=== PATIENT | female | born 1965 | race Caucasian/White ===

== ENCOUNTER 2016-10-30 04:42 | Emergency (ER) | payer BC ==
[2016-10-30 04:54] VITALS: BP 139/81
[2016-10-30] MEDS ORDERED: METHYLPREDNISOLONE ACETATE 80 MG/ML VIAL IM ONE (05:21)
[2016-10-30] MEDS ORDERED: DEXAMETHASONE SOD PHOSPHATE 10 MG/ML VIAL IM ONE (05:21)
[2016-10-30] MEDS ORDERED: DEXAMETHASONE SOD PHOSPHATE 10 MG/ML VIAL ONE (05:33)
[2016-10-30] MEDS ORDERED: METHYLPREDNISOLONE ACETATE 80 MG/ML VIAL ONE (05:33)
--- NOTE | 2016-10-30 05:44 | ERNOTE ---
Head Injury HPI - General Injury to: other - Chronic neck pain Time Seen by Provider: 10/30/16 04:57 Source: patient, family Exam Limitations: clinical condition - Immun/Allergies/Home Medications Immunization: IMMUNIZATION HX Immunizations Up to Date Yes History of Influenza Vaccine No Hx Pneumococcal Vaccination No Allergies/Adverse Reactions: Allergies Allergy/AdvReac Type Severity Reaction Status Date / Time hydrocodone [Hydrocodone] Allergy Verified 08/30/14 15:49 latex Allergy Verified 08/30/14 15:49 Home Medications: HOME MEDICATIONS Tramadol HCl [Rybix Odt] 100 mg PO BID PRN 10/13/12 [Last Taken 10/13/12 07:00] Levothyroxine Sodium 10 mcg PO DAILY 05/14/14 [Last Taken Unknown] Muscle Relaxer 05/19/14 [Last Taken Unknown] Magnesium Citrate [Citrate of Magnesia] 150 ml PO BID #1 btl 07/28/16 [Last Taken Unknown] Nitroglycerin 0.4 mg SL Q5MIN PRN #1 bottle 07/28/16 [Last Taken Unknown] Sucralfate [Carafate] 1 g PO QID PRN #120 tablet 07/28/16 [Last Taken Unknown] Methylprednisolone [Medrol Dosepak] 4 mg PO DAILY #21 tab.ds.pk 10/30/16 [Last Taken Unknown] - History of Present Illness Narrative: Pt states she has had neck pain for some time but is not clear how long that has been. thinks it has been since last summer. Pain is associated with left arm pain. Pt states she has tried to get into her PCP but cannot until the end of the month. She does take tramadol daily for pain. She states she has had PT referral early on in this but stopped that. She was given a referral to a surgeon but had a scheduling problem and did not reschedule. She has not had oral steroids or ANNI. Occurred: other - worse the past 2-3 weeks Method of Injury: Reports: unknown Review of Systems - Review of Systems Constitutional: Absent: recent illness EYE: Present: no symptoms reported ENT: Present: no symptoms reported Respiratory: Present: no symptoms reported Cardiology: Present: no symptoms reported Gastrointestinal/Abdominal: Present: no symptoms reported Genitourinary: Present: other - incontinence and difficulty emptying her bladder at times Musculoskeletal: Present: See HPI, back pain - Low back pain also Skin: Present: no symptoms reported Neurological: Present: numbness - of her face that has been there "for a while" . , other - Pain on the top of both feet intermittantly. Endocrine: Present: no symptoms reported Hematologic/Lymphatic: Present: no symptoms reported Psych: Present: no symptoms reported - Patient's Past Medical History Patient History - Medical: Arthritis, Chronic Pain, Hypothyroidism, Other - degenerative disc disease, spinal stenosis Patient History - Cardiac/Respiratory: No pertinent hx Patient History - Cancer: No Hx of Cancer Patient History - Surgical Procedures: Cholecystectomy, Gastric Bypass, Total Knee Replacement, Other LMP (females 10-50): Menopausal - Family History Father Family History - Medical: Family History - Cardiac/Respiratory: Hypertension, Myocardial Infarction Brother Family History - Medical: Family History - Cardiac/Respiratory: Hypertension, Myocardial Infarction Sister Family History - Medical: Family History - Cardiac/Respiratory: Hypertension, Myocardial Infarction - Social History Living Situations: spouse Smoking Status: Never smoker Have you smoked in the past 12 months: No Alcohol Use: rarely Drug Use: none Physical Exam - Physical Exam General Appearance: Present: alert, mild distress, moderate distress Ears, Nose, Throat: Present: normal ENT inspection, hearing grossly normal Neck: Present: limited range of motion - due to increased pain with movement Respiratory: Present: no respiratory distress, no accessory muscle use Back Exam: Present: no CVA tenderness, no vertebral tenderness, muscle spasm - in left trapezius Extremity Exam: Present: decreased range of motion - left arm due to pain. Neurological Exam: Present: alert, oriented, normal mood/affect, other - left arm has normal motor strength, normal sensation Skin Exam: Present: normal color, warm/dry ED Progress - Vital Signs Vital Signs: Vital Signs 10/30/16 04:43 Temperature 35.7 C L Pulse Rate 104 H Respiratory 18 Rate Blood Pressure 139/81 O2 Sat by Pulse 98 Oximetry - Progress/Reassessment Chief Complaint: Neck Pain/Injury Departure Clinical Impression: Cervical radiculopathy at C7 - Departure Disposition: Home Follow Up Needed Condition: Fair Instructions: Cervical Radiculopathy Additional Instructions: See your regular doctor or another physician as soon as you can to facilitate further referral Referrals: Denise Olivares, TILE FITTER [Primary Care Provider] - Prescriptions: Methylprednisolone [Medrol Dosepak] 4 mg PO DAILY #21 tab.ds.pk
== END 2016-10-30 05:50 | disposition home or self-care (01) ==
LOC: ER 04:42
DX: M54.12 Radiculopathy, cervical region (principal); Z78.0 Asymptomatic menopausal state; Z96.659 Presence of unspecified artificial knee joint; Z90.49 Acquired absence of other specified parts of digestive tract

== ENCOUNTER 2016-11-27 09:01 | Day surgery (SDC) | payer BC ==
--- NOTE | 2016-11-27 10:47 | OR ---
Anesthesia Pre Procedure Eval Date of Service: 11/27/16 Pre Procedure Evaluation: Last Vital Signs Temp 36.6 C 11/27/16 09:13 Pulse 89 11/27/16 09:13 Resp 16 11/27/16 09:13 BP 114/80 11/27/16 09:13 Pulse Ox 98 11/27/16 09:13 Anesthesia Pre Procedure Evaluation DATE: 11/27/2016. TIME: 1040. INDICATIONS: Cervical multilevel degenerative disc disease, loss of lordosis, C4-5 grade 1 spondylolisthesis, neck pain, left arm radiculitis. PAST MEDICAL HISTORY: Is a 51-year-old female with a history of neck pain and left arm pain and numbness. She has had cervical disc surgery in the past. She presents today with complaints of neck and left arm pain, numbness of her left fourth and fifth fingers. And loss of motor strength in her left fifth finger. EXAM: MRI report and films were reviewed. Pain is 7/10 on pain scale at present. ASSESSMENT OF MEDICAL STATUS: O.K. to proceed with ANNI. PLANNED PROCEDURE: Fluoroscopic guided epidural steroid injection C7-T1. Home Medications: HOME MEDICATIONS Cholecalciferol (Vitamin D3) [Vitamin D3] 10,000 unit PO Q7D 11/27/16 [Last Taken Unknown] Cholecalciferol (Vitamin D3) [Vitamin D3] 50,000 unit PO Q7D 11/27/16 [Last Taken Unknown] Cyanocobalamin (Vitamin B-12) [Vitamin B-12] 1,000 mcg SL DAILY 11/27/16 [Last Taken Unknown] Fluticasone Propionate [Flonase] 2 spray NS DAILY 11/27/16 [Last Taken Unknown] Levothyroxine Sodium [Synthroid] 75 mcg PO DAILY 11/27/16 [Last Taken Unknown] Pnv No.115/Iron Fumarate/FA [ 19 Chewable Tablet] 1 each PO DAILY [Last Taken Unknown] traMADol HCL [Ultram] 50 mg PO QID PRN 11/27/16 [Last Taken Unknown]
[2016-11-27] MEDS ORDERED: DEXAMETHASONE SOD PHOSPHATE 10 MG/ML VIAL IJ ONE (11:05)
[2016-11-27] MEDS ORDERED: IOPAMIDOL 20 ML VIAL IJ ONE (11:05)
[2016-11-27] MEDS ORDERED: LIDOCAINE HCL/PF 5 ML VIAL IJ ONE (11:05)
--- NOTE | 2016-11-27 11:21 | OR ---
Anesthesia Procedure Note - Anesthesia Procedure Note Date of Service: 11/27/16 Narrative: Vital Signs - Last Taken Temp 36.6 C 11/27/16 09:13 Pulse 90 11/27/16 11:00 Resp 18 11/27/16 11:00 BP 133/78 11/27/16 11:00 Pulse Ox 99 11/27/16 11:00 O2 Oxygen Delivery Method Room Air 11/27/16 11:15 ANESTHESIA PROCEDURE NOTE Date of Procedure: 11/27/2016. Time of procedure: 1100. Performed by: Giovany Haines CRNA Speech Pathologist Assistant: None. Preprocedure diagnosis: Cervical multilevel degenerative disc disease, loss of lordosis, C4-5 grade 1 spondylolisthesis, neck pain, left arm radiculitis. Post procedure diagnosis: Same. Procedure: Fluoroscopic guided epidural Steroid Injection C7-T1. Indications: This 51-year-old female with a history of neck pain and left arm pain and numbness. Potential risks and benefits of the procedure were discussed with the patient and consent was obtained. Findings: See below. Details of the procedure: The patient was brought back to operating room #2. The patient was then placed in the prone position to comfort. DuraPrep was applied to the patient's back. Patient was then draped in sterile fashion. Lidocaine 1% was infiltrated to the skin and subcutaneous tissues at the level of the C7-T1 interspace using fluoroscopic guidance. The epidural space was identified using a 20-gauge Tuohy needle with [id number] technique. 1 mL of Isovue contrast was then injected after negative aspiration for blood and CSF. The epidural space was outlined in the AP and lateral views. Preservative free Decadron 10 mg + 4 mL of 1% preservative-free lidocaine was administered to the epidural space after negative aspiration for blood and CSF. The Tuohy needle was removed intact. A Band-Aid was applied to the patient's back. The patient was then placed in a supine position for 5 minutes before returning to the ambulatory surgical unit. Total fluoroscopy time: 11.4 seconds. Cumulative dose: 2.24 mGy. EBL: Minimal. Fluids: N/A. Specimen: N/A. Post procedure condition: The patient tolerated the procedure well. No complications were noted. No motor weaknesses or paresthesias were noted upon discharge. Thank you for this consultation. Giovany Haines CRNA
[2016-11-27 12:05] VITALS: BP 121/81
== END 2016-11-27 09:02 | disposition home or self-care (01) ==
LOC: AMB 09:01
PROVIDERS: ATTEND Orthopaedic Surgery
PROC: 3E0S3BZ Introduction of Anesthetic Agent into Epidural Space, Percutaneous Approach (ICD-10-PCS; 2016-11-27)
PROC: 3E0S33Z Introduction of Anti-inflammatory into Epidural Space, Percutaneous Approach (ICD-10-PCS; principal; 2016-11-27 10:00)
DX: M50.30 Other cervical disc degeneration, unspecified cervical region (principal); M43.12 Spondylolisthesis, cervical region

== ENCOUNTER 2017-03-28 10:29 | Day surgery (SDC) | payer BC ==
--- OUTSIDE RECORDS SUMMARY | 2017-03-28 10:32 | XMS REPORT | Continuity of Care Document ---
:1965 Author Organization [facility] ([facility]) Address [address] [place] [address] Phone [phone] Care Team Providers Name Role Phone Indu Salguero Primary Care Provider [phone] Source Comments This disclosure is being made pursuant to the Care Everywhere program, applicable federal and state laws, and may not contain all informaitonavailable regarding this patient.[facility] ([facility]) Active Allergies and Adverse Reactions Allergen Noted Date Severity Reactions Comments Adhesive Tape-Silicones 11/04/2012 Blisters Hydrocodone 10/13/2012 Rash,Shortness of breath Hydromorphone 11/04/2012 Hallucinations Latex 10/13/2012 Rash Latex, Natural Rubber Urticaria (Hives) Current Medications Prescription Sig. Disp. Refills Start Date End Date Status traMADol PO Take 50 mg by Active mouth. ACETAMINOPHEN (TYLENOL Take 500 mg by Active PO) mouth. levothyroxine PO Take by mouth. Active 37.5 mcg daily cholecalciferol, VITAMIN Take by mouth. Active D3, PO multivitamin tablet Take 1 tablet by Active mouth daily. vitamin E 400 unit Take 400 Units by Active capsule mouth daily. cod liver oil capsule Take 1 capsule by Active mouth daily. vitamin B complex tablet Take 1 tablet by Active mouth daily. cyanocobalamin (VITAMIN Take by mouth Active B-12) PO daily. Ascorbate Calcium Take by mouth Active (VITAMIN C) 814 mg/gram daily. powd OTHER daily. Lethicin Active pregabalin (LYRICA) 75 mg Take 75 mg by mouth Active capsule 2 times daily. Active Problems Problem Noted Date Precordial pain 08/01/2016 Abnormal resting ECG findings 08/01/2016 Iron deficiency anemia 09/20/2014 SBO (small bowel obstruction) 10/13/2012 Chronic fatigue Most Recent Encounters Date Type Specialty Providers Description 03/12/2017 Office Visit Neurosurgery Francesco Banks, Subj: Upcoming Appt MD Reminder 03/12/2017 Office Visit Neurosurgery Francesco Banks, Dx: Cervical stenosis MD of spinal canal (Primary Dx) 03/12/2017 Hospital Encounter Radiology Braeden Hernández, Dx: Acute right- sided MD low back pain with sciatica, sciatica laterality unspecified 01/29/2017 Hospital Encounter Radiology Candy Roche MD Dx: Stenosis, cervical spine 01/29/2017 Hospital Encounter Radiology Candy Roche MD Dx: Stenosis, cervical spine 01/29/2017 Hospital Encounter Radiology Candy Roche MD Chief Comp: Patient Reported Reason For Visit 01/29/2017 Hospital Encounter Radiology Kevin Chavez Chief Comp: Patient Y, MD Reported Reason For Visit 01/29/2017 Hospital Encounter Radiology Candy Roche MD Chief Comp: Patient Reported Reason For Visit 01/29/2017 Office Visit Neurosurgery Francesco Banks, Dx: Stenosis, cervical spine (Primary Dx) 01/29/2017 Telephone Anesthesiology Francesco Zamora MD Chief Comp: Other 01/29/2017 Telephone Anesthesiology Francesco Zamora MD Chief Comp: Other 01/29/2017 Telephone Anesthesiology Francesco Zamora MD Chief Comp: Other 01/21/2017 Office Visit Anesthesiology Francesco Zamora MD Dx: Other chronic 1, Pain Clinic pain (Primary Dx) Provider 12/26/2016 Orders/Notes Neurosurgery Don Delgado III, MD Immunizations Name Dates Previously Given Next Due Influenza, unspecified 09/14/2006 Pneumococcal, unspecified 09/14/2006 Social History Tobacco Use Types Packs/Day Years Used Date Former Smoker Cigarettes 2.5 15 Quit: 12/17/2001 Smokeless Tobacco: Never Used Alcohol Use Drinks/Week oz/Week Comments No Last Filed Vital Signs Vital Sign Reading Time Taken Blood Pressure 101/57 03/12/2017 9:21 AM CDT Pulse 67 03/12/2017 9:21 AM CDT Temperature 36.1 C (97 F) 03/12/2017 9:21 AM CDT Respiratory Rate 16 10/17/2012 1:19 PM 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 Height 1.676 m (5' 6") 01/29/2017 8:41 AM CDT Weight 75.5 kg (166 lb 7.2 oz) 03/12/2017 9:21 AM CDT Body Mass Index 26.88 03/12/2017 9:21 AM CDT Oxygen Saturation 97% 08/01/2016 9:34 AM CDT Plan of Care Date Type Specialty Providers Description 06/11/2017 Appointment Neurosurgery Default, Other Billg - Chief Comp: Patient Defo Reported Reason For Visit [address] [place] [address] [phone] (Fax) 06/11/2017 Appointment Neurosurgery Francesco Banks MD Chief Comp: Patient [address] [place] [address] [phone] (Fax) Health Maintenance Due Date Last Done Comments Hepatitis B Vaccine (1 of 3 - Primary 1965 Series) Tdap Vaccine 1975 Lipid Disorder Screening 1982 MMR Vaccine 1982 Td Vaccine 1982 Cervical Cancer Screening 1994 Mammogram 2004 Colonoscopy 09/17/2016 09/17/2006 Influenza Vaccine: Seasonal (Season Ended) 2017 09/14/2006 HCV Screening Completed 09/16/2006, 12/15/1996 Results from Last 3 Months MRI SPINE LUMBAR WO CONTRAST (69625) (03/12/2017 8:31 AM) Narrative Procedure: MRI SPINE LUMBAR WO CONTRAST (12990) Indication: Low back pain Technique: Multisequence, multiplanar MRI of the lumbar spine without contrast. Comparison: None Findings: Numbering assumes 5 lumbar type vertebrae. There is normal alignment without evidence of acute fracture or dislocation. Vertebral body heights are well-maintained. The visualized cord is within normal limits. The conus medullaris terminates at L1-L2. Normal marrow signal throughout.Paravertebral structures are unremarkable. A level by level analysis is as follows: T12-L1: No significant canal or foraminal stenosis. L1-L2: Mild disc bulging without significant canal or foraminal stenosis. L2-L3: Mild disc bulging without significant canal or foraminal stenosis. L3-L4: Disc osteophyte complex causes mild canal stenosis and mild foraminal stenosis bilaterally. L4-L5: Disc osteophyte complex causes mild canal stenosis and mild foraminal stenosis bilaterally. L5-S1: Mild disc bulging without significant canal or foraminal stenosis. Impression: Multilevel degenerative changes, most significantly at L3-4 and L4-5. Procedure Note Sam, Incoming Imaging Results - Tue March 12, 2017 9:38 AM CDT Procedure: MRI SPINE LUMBAR WO CONTRAST (22010) Indication: Low back pain Technique: Multisequence, multiplanar MRI of the lumbar spine without contrast. Comparison: None Findings: Numbering assumes 5 lumbar type vertebrae. There is normal alignment without evidence of acute fracture or dislocation. Vertebral body heights are well-maintained. The visualized cord is within normal limits. The conus medullaris terminates at L1-L2. Normal marrow signal throughout. Paravertebral structures are unremarkable. A level by level analysis is as follows: T12-L1: No significant canal or foraminal stenosis. L1-L2: Mild disc bulging without significant canal or foraminal stenosis. L2-L3: Mild disc bulging without significant canal or foraminal stenosis. L3-L4: Disc osteophyte complex causes mild canal stenosis and mild foraminal stenosis bilaterally. L4-L5: Disc osteophyte complex causes mild canal stenosis and mild foraminal stenosis bilaterally. L5-S1: Mild disc bulging without significant canal or foraminal stenosis. Impression: Multilevel degenerative changes, most significantly at L3-4 and L4-5. EXTERNAL PL FILMS - STORE ONLY (01/29/2017 9:23 AM)EXTERNAL MRI - STORE ONLY ( 01/29/2017 9:15 AM)
--- NOTE | 2017-03-28 11:05 | OR ---
Anesthesia Pre Procedure Eval Date of Service: 03/28/17 Pre Procedure Evaluation: Last Vital Signs Temp 36.5 C 03/28/17 10:40 Pulse 79 03/28/17 10:40 Resp 18 03/28/17 10:40 BP 115/64 03/28/17 10:40 Pulse Ox 98 03/28/17 10:40 Anesthesia Pre Procedure Evaluation DATE: 03/28/2017. TIME: 1100. INDICATIONS: Cervical spinal stenosis and left arm radiculopathy. M48.02 PAST MEDICAL HISTORY: This 51-year-old female with history of neck and left arm pain and numbness. She had epidural steroid injection back in October 2016 with good relief. She presents today with complaints of increasing neck and left arm pain with intermittent right arm discomfort. EXAM: MRI report and films were reviewed. Pain is 2/10 on pain scale at present. ASSESSMENT OF MEDICAL STATUS: O.K. to proceed with ANNI. PLANNED PROCEDURE: Fluoroscopic guided epidural steroid injection C7-T1. Home Medications: HOME MEDICATIONS traMADol HCL [Ultram] 50 mg PO QID PRN 11/27/16 [Last Taken 03/28/17] Acetaminophen [Tylenol] 650 mg PO Q4H PRN 03/26/17 [Last Taken 03/28/17] Levothyroxine Sodium [Synthroid] 37.5 mcg PO DAILY 03/26/17 [Last Taken 03/28/17 ] Multivitamins [Multivitamin Zev] 1 cap PO DAILY 03/26/17 [Last Taken 03/28/17 ] Cholecalciferol (Vitamin D3) [Vitamin D] 2,000 unit PO DAILY 03/28/17 [Last Taken 03/28/17] Pregabalin [Lyrica] 25 mg PO BID 03/28/17 [Last Taken 03/28/17] Vit B Comp/C/FA/Iron/Vit E [Vitamin B Complex Tablet] 1 each PO DAILY 03/28/17 [ Last Taken 03/28/17]
[2017-03-28] MEDS ORDERED: DEXAMETHASONE SOD PHOSPHATE 10 MG/ML VIAL IJ ONE (11:34)
[2017-03-28] MEDS ORDERED: IOPAMIDOL 20 ML VIAL IJ ONE (11:34)
[2017-03-28] MEDS ORDERED: LIDOCAINE HCL/PF 5 ML VIAL IJ ONE (11:34)
--- NOTE | 2017-03-28 11:53 | OR ---
Anesthesia Procedure Note - Anesthesia Procedure Note Date of Service: 03/28/17 Narrative: Vital Signs - Last Taken Temp 36.5 C 03/28/17 11:46 Pulse 69 03/28/17 11:46 Resp 18 03/28/17 11:46 BP 103/72 03/28/17 11:46 Pulse Ox 100 03/28/17 11:46 03/28/17 11:51 ANESTHESIA PROCEDURE NOTE Date of Procedure: 03/28/2017. Time of procedure: 1125. Performed by: Giovany Haines CRNA Cook Tortilla: None. Preprocedure diagnosis: Cervical spinal stenosis, left arm radiculopathy. M48.02. Post procedure diagnosis: Same. Procedure: Fluoroscopic guided epidural Steroid Injection C7-T1. Indications: Is a 51-year-old female with a history of neck and left arm pain status post cervical fusion. She had epidural steroid injection back October 2016 with good relief. She presents today with increasing complaints of pain and left arm numbness Potential risks and benefits of the procedure were discussed with the patient and consent was obtained. Findings: See below. Details of the procedure: The patient was brought back to operating room #4. The patient was then placed in the prone position to comfort. DuraPrep was applied to the patient's back. Patient was then draped in sterile fashion. Lidocaine 1% was infiltrated to the skin and subcutaneous tissues at the level of the C7-T1 interspace using fluoroscopic guidance. The epidural space was identified using a 20-gauge Tuohy needle with [id number] technique. 1 mL of Isovue contrast was then injected after negative aspiration for blood and CSF. The epidural space was outlined in the AP and lateral views. Preservative free Decadron 10 mg + 4 mL of 1% preservative-free lidocaine was administered to the epidural space after negative aspiration for blood and CSF. The Tuohy needle was removed intact. A Band-Aid was applied to the patient's back. The patient was then placed in a supine position for 5 minutes before returning to the ambulatory surgical unit. Total fluoroscopy time: 12.8 seconds. Cumulative dose: 4.21 mGy. EBL: Minimal. Fluids: N/A. Specimen: N/A. Post procedure condition: The patient tolerated the procedure well. No complications were noted. No motor weaknesses or paresthesias were noted upon discharge. Thank you for this consultation. Giovany Haines CRNA
[2017-03-28 12:34] VITALS: BP 110/66
== END 2017-03-28 10:30 | disposition home or self-care (01) ==
LOC: AMB 10:29
PROVIDERS: ATTEND Neurological Surgery
PROC: 3E0S3BZ Introduction of Anesthetic Agent into Epidural Space, Percutaneous Approach (ICD-10-PCS; 2017-03-28)
PROC: 3E0S33Z Introduction of Anti-inflammatory into Epidural Space, Percutaneous Approach (ICD-10-PCS; principal; 2017-03-28 11:00)
DX: M48.02 Spinal stenosis, cervical region (principal); M54.12 Radiculopathy, cervical region; Z68.26 Body mass index [BMI] 26.0-26.9, adult

== ENCOUNTER 2017-07-19 09:08 | Day surgery (SDC) | payer BC ==
[~2017-07-19 09:08] MED LIST: RINGER'S SOLUTION,LACTATED 1,000 ML IV PRN
--- NOTE | 2017-07-19 11:46 | OR ---
Operative Report - Dictated Report Narrative: Date: 07/19/2017 Preop dx: Screen for colon cancer Postop dx; Polyp ascending colon, probable rectal hyperplastic polyp Procedure: total colonoscopy Surgeon: Lan Camara MD Anesthesia: MAC per NURSING CARE PARTNER EBL: minimal Specimen: Polyp, ascending colon. Polyp, rectum. Description: After informed consent and appropriate sedation the patient was placed in the left lateral decubitus position. A flexible fiberoptic video colonoscope was introduced and advanced under direct vision without difficulty to the cecum. The usual landmarks were identified. Preparation was excellent and excellent views were obtained. The findings were of a normal cecum, a small 5mm sessile polyp in the ascending colon was biopsied and destroyed with electrocautery, Normal hepatic flexure, transverse colon, splenic flexure, descending colon, sigmoid colon, a 5mm probable hyperplastic polyp of the was biopsied and completely removed. The mucosal color, vasculature and texture were normal throughout. No suspicious masses or diverticulosis were seen. The patient tolerated the procedure well without apparent complications and was discharged from the endoscopy suite in stable condition.
[2017-07-19 12:48] VITALS: BP 136/83
== END 2017-07-19 09:09 | disposition home or self-care (01) ==
LOC: AMB 09:08
PROVIDERS: ATTEND Specialist
PROC: 0DBP8ZX Excision of Rectum, Via Natural or Artificial Opening Endoscopic, Diagnostic (ICD-10-PCS; 2017-07-19)
PROC: 0DBK8ZX Excision of Ascending Colon, Via Natural or Artificial Opening Endoscopic, Diagnostic (ICD-10-PCS; principal; 2017-07-19 09:50)
DX: Z12.11 Encounter for screening for malignant neoplasm of colon (principal); D12.2 Benign neoplasm of ascending colon; K62.1 Rectal polyp; Z87.891 Personal history of nicotine dependence; Z68.27 Body mass index [BMI] 27.0-27.9, adult; Z80.0 Family history of malignant neoplasm of digestive organs

== ENCOUNTER 2017-08-15 12:57 | Day surgery (SDC) | payer BC ==
[2017-08-15 13:37] LABS: Hematocrit 42.9 % (37.0-47.0); Hemoglobin 14.1 gm/dL (12.5-16.0); Mean Cell Volume 89.4 fl (78-100); Mean Corpuscular Hemoglobin 29.4 pg (27-31); Mean Corpuscular Hgb Conc 32.9 g/dl (32-36); Neutrophil # 3.2 K/mm3 (1.3-6.0); Neutrophil % 54.4 % (42-75.0); Platelet Count 248 K/mm3 (150-450); Red Cell Distribution Width 14.2 % (11.5-14.0); White Blood Count 5.9 K/mm3 (4.0-10.5)
[2017-08-15 13:56] LABS: Anion Gap 10.2 mmol/L (6.8-13.8); BUN/Creatinine Ratio 10.5 (9.0-21.6); Bilirubin, Total 0.4 mg/dL (0.0-1.1); Ca. Corrected For Albumin 8.7 mg/dL (8.4-10.2); Carbon Dioxide 30.6 mmol/L (24-32.6); Potassium 3.8 mmol/L (3.4-4.6); Total Protein 7.3 gm/dL (6.2-8.2)
[2017-08-15] MEDS ORDERED: RINGER'S SOLUTION,LACTATED 1,000 ML IV PRN (15:37)
--- NOTE | 2017-08-15 15:37 | OR ---
Operative Report - Dictated Report Narrative: Date of Procedure: 08/15/2017 PROCEDURE: 1. Hysteroscopy and D&C ANESTHESIA: General with IV sedation. PREOPERATIVE DIAGNOSIS: 1. Postmenopausal bleeding 2. Thickened endometrium 3. Multiple uterine fibroids 4. Status post Novasure endometrial ablation in 2007 5. History of gastric bypass POSTOPERATIVE DIAGNOSES: 1. Postmenopausal bleeding 2. Thickened endometrium 3. Multiple uterine fibroids 4. Status post Novasure endometrial ablation in 2007 5. History of gastric bypass SURGEON: Meera Concepcion MD RETAIL PROJECT MERCHANDISER: [place] FINDINGS: 1. Severely retroverted and retroflexed uterus, sounded to about 8 cm. Cervical os was extremely stenotic. Cervical canal appeared normal. Blood clot in lower uterine segment. Unable to see the endometrial cavity because the hysteroscope could not make the turn due to sharp angle from the retroflexed uterus. SPECIMEN: 1. Endometrial curettings. DRAINS: None. URINE OUTPUT: not measured BLOOD LOSS: 5 ml INTRAOPARATIVE IV FLUIDS: 650 ml Uterine distending media: Normal saline, In 1000 ml, out 900 ml, deficit 100 ml COMPLICATIONS: None. DESCRIPTION OF PROCEDURE: The patient consented prior to the operation and taken to the operating room. She was placed on the operating table supine. General anesthesia was induced by IV medication. She was repositioned in the dorsal lithotomy position. Exam under anesthesia revealed a retroverted and retroflexed uterus with no palpable adnexal mass. The abdomen and the vagina were prepped with Betadine. She was draped in the usual sterile fashion. A time-out procedure was conducted to confirm the correct patient for the correct procedure. After time-out, a bivalve speculum was placed into the vagina. The cervix was visualized. The vagina and the cervix were prepped with Betadine one more time. The anterior cervix was grasped with a single-tooth tenaculum. The cervical os was extremely stenotic requiring serial dilation with dilators. The uterus was sounded to 8 cm. A 30 degree hysteroscope was inserted through cervical canal into the uterine cavity. Cervical canal appeared normal. Blood clot was seen in lower uterine segment. I was not able to see the endometrial cavity because the hysteroscope could not make the turn due to sharp angle from the retroflexed uterus. The hysteroscope was removed. Next, a bivalve speculum was removed. A right angle retractor was placed. A sharp curette was inserted into the uterine cavity. The cavity was scraped in all directions. Small amount of endometrial curettings were obtained. The sharp curette was removed. There was no bleeding from the cervix. The single-tooth tenaculum was removed. The tenaculum site was hemostastic. The right angle retractor was removed. Patient tolerated the procedure well. All counts were correct. The patient was taken to the recovery room in stable condition. Meera Concepcion MD
[2017-08-15] MEDS ORDERED: KETOROLAC TROMETHAMINE 15 MG/ML VIAL IV PRN (15:39)
[2017-08-15 17:03] VITALS: BP 125/70
== END 2017-08-15 12:58 | disposition home or self-care (01) ==
LOC: AMB 12:57
PROVIDERS: ATTEND Obstetrics & Gynecology
PROC: 0UJD8ZZ Inspection of Uterus and Cervix, Via Natural or Artificial Opening Endoscopic (ICD-10-PCS; 2017-08-15)
PROC: 0UDB7ZX Extraction of Endometrium, Via Natural or Artificial Opening, Diagnostic (ICD-10-PCS; principal; 2017-08-15 14:40)
DX: D25.9 Leiomyoma of uterus, unspecified (principal); N95.0 Postmenopausal bleeding; D50.9 Iron deficiency anemia, unspecified; Z87.891 Personal history of nicotine dependence; Z68.26 Body mass index [BMI] 26.0-26.9, adult